=== PATIENT | male | born 2000 | race Caucasian/White ===

== ENCOUNTER → 2018-05-19 | Outpatient (CLI) | payer BC | LOC: LAB 15:49 → LAB SHORT 15:49 | DX: L02.92 Furuncle, unspecified (principal) | CPT/HCPCS: 87070; 87077; 87147; 87186; 87205 ==

== ENCOUNTER 2020-09-22 14:48 | Emergency (ER) | payer OTHER, BC ==
[~2020-09-22] VITALS: Ht 188 cm; Wt 161.5 kg
[2020-09-22] MEDS ORDERED: CYCL10 PO (16:24)
== END 2020-09-22 16:34 | disposition home or self-care (01) ==
LOC: ER 14:48
DX: S39.012A Strain of muscle, fascia and tendon of lower back, initial encounter (principal); V58.4XXA Person boarding or alighting a pick-up truck or van injured in noncollision transport accident, initial encounter
CPT/HCPCS: 96372; 99282-25; A9270; J1885